=== PATIENT | male | born 1975 | race Caucasian/White ===

== ENCOUNTER 2018-07-23 19:05 | Emergency (ER) | payer MEDICAID, OTHER ==
[~2018-07-23] VITALS: Ht 177.8 cm; Wt 109.8 kg
--- OUTSIDE RECORDS SUMMARY | 2018-07-23 19:11 | XMS REPORT | Continuity of Care Document ---
Author Author [facility] Organization [facility] Address [address] [place] [address] Phone Unavailable Care Team Providers Care Account Service Representative Name Role Phone Roscoe Anne DO PCP Insurance Providers Payer Name Policy Number Subscriber Name Relationship [facility] [id number] Charlie Camp Self / Same As Patient Advance Directives Directive Response Recorded Date/Time Do You Have A Living Will? No 05/04/16 2:32am Do You Have a DPOA? No 05/04/16 2:32am Chief Complaint and Reason for Visit Chief Complaint Eye Problems Reason for Visit Abrasion of sclera of right eye Problems Active Problems Medical Problem Onset Date Status Anxiety Unknown Acute Reactive airway disease Unknown Acute Abrasion of sclera of right eye Unknown Acute Medications Current Home Medications Medication Dose Units Route Directions Days/Qty Instructions Start Date Esomeprazole Magnesium (Nexium) 40 Mg 40 Mg Oral Twice A Day Mag Hydrox/Al Hydrox/Simeth 355 Ml 355 Ml Oral As Needed take as directed 06/29/13 Fluticasone Propionate 110 Mcg/Actuation 1 Puff Inhalation Twice A Day 1 02/09/15 Social History Social History Problem Response Recorded Date/Time History of Street Drugs? Y marijuana 10 yrs ago 05/04/2016 2:25am Hx Alcohol Use N quit 4 yrs ago. 05/04/2016 2:25am Query Response Start Date Stop Date Smoking status: Former smoker Hospital Discharge Instructions No hospital discharge instructions. Plan of Care Discharge Date 05/04/16 3:00am Disposition HOME, ROUTINE DIS/ASST LIVING Condition at Discharge Stable & Improved Instructions/Education Provided Corneal Abrasion (ED) How to Use Eye Drops (GEN) Prescriptions See Medication Section Referrals Roscoe Anne DO - Additional Instructions/Education Activity Restrictions: Apply drops in right eye 4 times a day X 1 week. If symptoms get wrose then return to the ER or follow up with an eye doctor. Call the doctor's office for an appointment in 5 days, if you have any problems, concerns or need to make a follow-up appointment. IMPORTANT: We examined and treated you today on an emergency basis only. In most cases, you must let your doctor check you again. Tell your doctor about any new or lasting problems. We cannot recognize and treat all injuries or illnesses in one Emergency Department visit. If you had special tests, such as EKG's or X-rays, we will review them again within 24 hours. We will call you if there are any new suggestions. YOU ARE THE MOST IMPORTANT FACTOR IN YOUR RECOVERY. Follow these instructions carefully. Take your medicines as prescribed. Most important, see a doctor again as discussed. If you have problems that we have not discussed, call or visit your doctor right away. [facility] Emergency Department Functional Status No functional status results. Allergies, Adverse Reactions, Alerts No known allergies. Immunizations No immunization records. Vital Signs Acute Vital Signs Vital Response Date/Time Height (Feet) 5 ft 05/04/2016 2:25am Height (Inches) 10 inches 05/04/2016 2:25am Temperature (Fahrenheit) 98.2 degrees F (97.6 - 99.5) 05/04/2016 2:55am Pulse Pulse Rate 63 bpm (60 - 100) 05/04/2016 2:55am Respiratory Rate 20 bpm (10 - 24) 05/04/2016 2:55am Oxygen Saturation O2 Sat by Pulse Oximetry 96 % (93 - 100) 05/04/2016 2:55am Blood Pressure 160/81 mm Hg 05/04/2016 2:55am Blood Pressure Mean 107 mm Hg 05/04/2016 2:55am Height 5 ft 10 in Weight 248 lb Body Mass Index 35.0 kg/m^2 Results No known relevant diagnostic tests, laboratory data and/or discharge summary. Procedures Procedure Status Date Provider(s) EVALUATION OF WHEEZING Completed 04/26/16 PULM FUNCT TST PLETHYSMOGRAP Completed 04/26/16 CO/MEMBANE DIFFUSE CAPACITY Completed 04/26/16 Encounters Encounter Location Arrival/Admit Date Discharge/Depart Date Attending Provider Departed Emergency Room [facility] 05/04/16 2:25am 3:00am Zakia Barahona PA-C Departed Clinic [facility] 04/26/16 12:59pm 04/26/16 11: 59pm Roscoe Anne DO Recent Diagnosis
--- OUTSIDE RECORDS SUMMARY | 2018-07-23 19:11 | XMS REPORT | Continuity of Care Document ---
Author Author [facility] Organization [facility] Address Unknown Phone Unavailable Allergies Active Description Code Type Severity Reaction Onset Reported/Identified Relationship to Patient Clinical Status Yes No Known Allergies NKA Miscellaneous Allergy Unknown N/A 06/28/2013 Yes No Known Allergies Miscellaneous Allergy Unknown N/A 06/28/2013 Medications There is no data. 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, RIGHT EYE, INIT 05/04/2016 Zakia Barahona R PA-C Other X58.XXXA EXPOSURE TO OTHER SPECIFIED FACTORS, INITIAL ENCOUNTER 05/04/2016 Zakia Barahona PA-C Other Y99.0 CIVILIAN ACTIVITY DONE FOR INCOME OR PAY 07/19/2017 CIRILO BOYD P R74.8 ABNORMAL LEVELS OF OTHER SERUM ENZYMES Procedures Code Description [place] [address] Laminotomy (hemilaminectomy) , with decompression of nerve root(s), including partial facetectomy, fo Colby Medina 11/28/2011 Results Test Result Range CBC With Differential/Platelet - 06/22/17 11:45 WBC 7.6 x10E3/uL 3.4-10.8 RBC 5.43 x10E6/uL 4.14-5.80 Hemoglobin 16.2 g/dL 13.0-17.7 Hematocrit 47.7 % 37.5-51.0 MCV 88 fL 79-97 MCH 29.8 pg 26.6-33.0 MCHC 34.0 g/dL 31.5-35.7 RDW 14.5 % 12.3-15.4 Platelets 231 x10E3/uL 150-379 Neutrophils 69 % Not Estab. Lymphs 18 % Not Estab. Monocytes 11 % Not Estab. Eos 1 % Not Estab. Basos 0 % Not Estab. Neutrophils (Absolute) 5.3 x10E3/uL 1.4-7.0 Lymphs (Absolute) 1.3 x10E3/uL 0.7-3.1 Monocytes(Absolute) 0.8 x10E3/uL 0.1-0.9 Eos (Absolute) 0.1 x10E3/uL 0.0-0.4 Baso (Absolute) 0.0 x10E3/uL 0.0-0.2 Immature Granulocytes 1 % Not Estab. Immature Grans (Abs) 0.0 x10E3/uL 0.0-0.1 Comp. Metabolic Panel (14) - 06/22/17 11:45 Glucose, Serum 99 mg/dL 65-99 BUN 14 mg/dL 6-24 Creatinine, Serum 0.99 mg/dL 0.76-1.27 eGFR If NonAfricn Am 93 mL/min/1.73 >59 eGFR If Africn Am 107 mL/min/1.73 >59 BUN/Creatinine Ratio 14 9-20 Sodium, Serum 139 mmol/L 134-144 Potassium, Serum 4.0 mmol/L 3.5-5.2 Chloride, Serum 100 mmol/L 96-106 Carbon Dioxide, Total 24 mmol/L 18-29 Calcium, Serum 9.4 mg/dL 8.7-10.2 Protein, Total, Serum 7.1 g/dL 6.0-8.5 Albumin, Serum 4.4 g/dL 3.5-5.5 Globulin, Total 2.7 g/dL 1.5-4.5 A/G Ratio 1.6 1.2-2.2 Bilirubin, Total 0.5 mg/dL 0.0-1.2 Alkaline Phosphatase, S 84 IU/L 39-117 AST (SGOT) 38 IU/L 0-40 ALT (SGPT) 65 IU/L 0-44 Lipid Panel - 06/22/17 11:45 Cholesterol, Total 162 mg/dL 100-199 Triglycerides 133 mg/dL 0-149 HDL Cholesterol 48 mg/dL >39 VLDL Cholesterol Earl 27 mg/dL 5-40 LDL Cholesterol Calc 87 mg/dL 0-99 TSH - 06/22/17 11:45 TSH 1.750 uIU/mL 0.450-4.500 Chlamydia/GC Amplification - 07/10/18 14:54 Chlamydia trachomatis, ZAMZAM Negative Negative Neisseria gonorrhoeae, ZAMZAM Negative Negative Encounters ACCT No. Visit Date/Time Discharge Status Pt. Type Provider Facility Loc./Unit Complaint [id number] 03/29/2015 12:10:54 03/29/2015 23:59:59 CLS Outpatient Philip Darci Yonis [id number] 03/01/2015 11:14:38 03/01/2015 23:59:59 CLS Outpatient Fadia Guardado [id number] 02/22/2015 10:36:01 02/22/2015 23:59:59 CLS Outpatient PhilipDarci Yonis [id number] 12/21/2014 13:49:24 12/21/2014 23:59:59 CLS Outpatient Darci Palacios [id number] 02/20/2014 09:58:36 02/20/2014 23:59:59 CLS Outpatient Zoila Bernard [id number] 06/29/2013 01:56:00 06/29/2013 18:30:00 DIS Inpatient Donnie VAZQUEZ, [facility] [id number] 05/04/2016 02:25:00 05/04/2016 03:00:00 DIS Emergency Zakia Barahona PA-C [facility].ED EYE INJURY [id number] 04/26/2016 12:59:00 04/26/2016 23:59:00 DIS Outpatient [facility].PF COPD [id number] 07/29/2015 07:43:00 07/29/2015 23:59:59 CLS Outpatient [facility].LABONE [id number] 05/05/2015 19:37:00 06/22/2015 17:14:00 DIS Outpatient Danyell VAZQUEZ, Abram Azul [facility].SNS [id number] 04/30/2015 10:57:00 04/30/2015 23:59:00 DIS Outpatient Ron [facility].LAB [id number] 03/29/2015 23:04:00 03/29/2015 23:59:00 DIS Outpatient [facility].SLEEP [id number] 03/22/2015 10:22:00 03/22/2015 23:59:59 CLS Outpatient [facility].LABONE [id number] 03/22/2015 10:18:00 03/22/2015 23:59:00 DIS Outpatient [facility].IMG.RA [id number] 02/09/2015 08:21:00 02/09/2015 11:17:00 DIS Emergency Vesna Barbour [facility].ED [id number] 02/08/2015 12:52:00 02/08/2015 23:59:00 DIS Outpatient Cirilo Anne DO [facility].PF [id number] 02/04/2015 15:30:00 02/04/2015 23:59:59 CLS [facility].IMG.CT [id number] 02/01/2015 10:03:00 02/01/2015 23:59:59 CLS Outpatient Darci Palacios MD [facility].LABONE LAB ONE [id number] 02/01/2015 10:01:00 02/01/2015 23:59:00 DIS Outpatient Darci Palacios MD [facility].IMG.RA HX TOBACCO USE , PREOP [id number] 11/29/2015 17:57:26 Document Registration [id number] 03/24/2015 12:05:00 03/24/2015 23:59:59 CLS Outpatient [id number] 07/14/2018 08:36:00 Document Registration [id number] 07/11/2017 14:06:00 Document Registration [id number] 07/13/2017 07:45:00 ACT Unknown CIRILO BOYD [id number] 06/23/2017 08:13:00 Document Registration
--- OUTSIDE RECORDS SUMMARY | 2018-07-23 19:11 | XMS REPORT | Continuity of Care Document ---
Author Author [facility] Organization [facility] Address [address] [place] [address] Phone Unavailable Care Team Providers Care Director Of Marketing Operations Name Role Phone Roscoe Anne DO PCP Insurance Providers Payer Name Policy Number [id number] Charlie Camp Self / Same As Patient Advance Directives Directive Response Recorded Date/Time Do You Have A Living Will? No 04/26/16 12:58pm Do You Have a DPOA? No 04/26/16 12:58pm Problems Active Problems Medical Problem Onset Date Status Anxiety Unknown Acute Reactive airway disease Unknown Acute Medications Current Home Medications Medication [...] Street Drugs? Y marijuana 10 yrs ago 02/09/2015 8:25am Hx Alcohol Use N quit 4 yrs ago. 06/29/2013 1:57am Query Response Start Date Stop Date Smoking status: Former smoker Hospital Discharge Instructions No hospital discharge instructions. Plan of Care Discharge Date 04/26/16 11:59pm Prescriptions See Medication Section Functional Status No functional status results. Allergies, Adverse Reactions, Alerts No known allergies. Immunizations No immunization records. Vital Signs No known vital signs results. Results No known relevant diagnostic tests, laboratory data and/or discharge summary. Procedures No known history of procedures. Encounters Encounter Location Arrival/Admit Date Discharge/Depart Date Attending Provider Departed Clinic [facility] 04/26/16 12:59pm 04/26/16 11: 59pm Roscoe Anne DO
[2018-07-23] MEDS ORDERED: KETOROLAC 30 MG/ML VIAL IVP STA (19:28)
[2018-07-23] MEDS ORDERED: NS IV 1000 ML 1,000 ML IV STA (19:28)
[2018-07-23] MEDS ORDERED: AZITHROMYCIN INJECTION 500 MG in NS (IVPB) 250 ML IV STA (19:28)
[2018-07-23] MEDS ORDERED: cefTRIAXone FOR IV USE 1,000 MG in WATER (STERILE) FOR INJECTION 10 ML IV STA (19:28)
[2018-07-23] MEDS ORDERED: OSELTAMIVIR 75 MG (TAMIFLU) CAPSULE PO STA (19:31)
--- NOTE | 2018-07-23 19:36 | ED Cough/URI ---
General Stated Complaint: COUGH, WHEEZING, MIGRAINE, FEVER, SOB History of Present Illness Date Seen by Provider: Jul 23, 2018 Time Seen by Provider: 19:22 This is a 43-year-old man with a history of COPD who complains of 2 days of headache, right-sided earache, cough, fever, sore throat, and diffuse myalgias. No neck pain or neck stiffness. No visual change or focal weakness, numbness, or tingling. He says that the earache began first. The headache was not abrupt in onset, not worst of life. It is frontal and nonradiating. Cough is nonproductive. No leg swelling. No vomiting or diarrhea, no rash, no other symptoms. Allergies and Home Medications Allergies Coded Allergies: No Known Drug Allergies (Unverified , 07/23/18) Home Medications Azithromycin 250 Mg Tablet, 250 MG PO DAILY Prescribed by: ROSLYN WALLACE on 07/23/182221 Benzonatate 100 Mg Capsule, 200 MG PO BID PRN for COUGH Prescribed by: ROSLYN WALLACE on 07/23/182221 Methylprednisolone 4 Mg Tab.ds.pk, 4 MG PO UD PER DOSE PACK INSTRUCTIONS Prescribed by: ROSLYN WALLACE on 07/23/182221 Ondansetron 8 Mg Tab.rapdis, 8 MG PO TID PRN for NAUSEA/VOMITING-1ST LINE Prescribed by: ROSLYN WALLACE on 07/23/182221 Oseltamivir Phosphate 75 Mg Cap, 75 MG PO BID Prescribed by: ROSLYN WALLACE on 07/23/182221 Patient Home Medication List Home Medication List Reviewed: Yes Review of Systems Review of Systems Constitutional: see HPI EENTM: see HPI, ear pain, throat pain Respiratory: cough Cardiovascular: no symptoms reported Gastrointestinal: no symptoms reported Genitourinary: no symptoms reported Musculoskeletal: see HPI Skin: no symptoms reported Psychiatric/Neurological: See HPI Hematologic/Lymphatic: No Symptoms Reported Immunological/Allergic: no symptoms reported Past Hpsrrxl-Gkmgub-Fbqlid Hx Patient Social History Recent Foreign Travel: No Contact w/Someone Who Travel: No Physical Exam Vital Signs - First Documented 07/23/18 19:12 Temp 100.4 Pulse 126 Resp 24 B/P (MAP) 141/81 (101) Pulse Ox 96 O2 Delivery Room Air Capillary Refill : Height: '" Weight: lbs. oz. kg; BMI Method: General Appearance: no apparent distress HEENT: other (clear effusion behind right TM, left TM is normal, pharynx mildly erythematous, no edema, no exudates) Neck: supple Respiratory: other (mild Rales left posterior lung field, good air exchange bilaterally, no respiratory distress, intermittent dry sounding cough) Cardiovascular: normal peripheral pulses, no edema, other (tachycardic, regular ) Gastrointestinal: non tender, soft Extremities: non-tender Neurologic/Psychiatric: provider education specialist II-XII nml as tested, no motor/sensory deficits, alert, normal mood/affect, oriented x 3; No abnormal gait Skin: warm/dry Focused Exam Lactate Level 07/23/18 20:05: Lactic Acid Level 1.25 Lactic Acid Level Laboratory Tests Test 07/23/18 20:05 Lactic Acid Level 1.25 MMOL/L (0.50-2.00) Progress/Results/Core Measures Suspected Sepsis SIRS Temperature: Pulse: Respiratory Rate: Laboratory Tests 07/23/18 19:40: White Blood Count 9.4 Blood Pressure / Mean: 07/23/18 20:05: Lactic Acid Level 1.25 Laboratory Tests 07/23/18 19:40: Platelet Count 167 07/23/18 20:05: Creatinine 0.90 Results/Orders Lab Results Laboratory Tests Test 07/23/18 19:40 07/23/18 20:05 Range/Units White Blood Count 9.4 4.3-11.0 10^3/uL Red Blood Count 5.81 4.35-5.85 10^6/uL Hemoglobin 17.4 13.3-17.7 G/DL Hematocrit 50 40-54 % Mean Corpuscular Volume 86 80-99 FL Mean Corpuscular Hemoglobin 30 25-34 PG Mean Corpuscular Hemoglobin Concent 35 32-36 G/DL Red Cell Distribution Width 13.7 10.0-14.5 % Platelet Count 167 130-400 10^3/uL Mean Platelet Volume 10.2 7.4-10.4 FL Neutrophils % (Manual) 72 % Lymphocytes % (Manual) 4 % Monocytes % (Manual) 10 % Eosinophils % (Manual) 2 % Basophils % (Manual) 1 % Band Neutrophils 8 % Atypical Lymphocytes 3 % Sodium Level 140 135-145 MMOL/L Potassium Level 4.2 3.6-5.0 MMOL/L Chloride Level 104 98-107 MMOL/L Carbon Dioxide Level 24 21-32 MMOL/L Anion Gap 12 5-14 MMOL/L Blood Urea Nitrogen 11 7-18 MG/DL Creatinine 0.90 0.60-1.30 MG/DL Estimat Glomerular Filtration Rate > 60 BUN/Creatinine Ratio 12 Glucose Level 108 H 70-105 MG/DL Lactic Acid Level 1.25 0.50-2.00 MMOL/L Calcium Level 9.3 8.5-10.1 MG/DL My Orders Orders - ROSLYN WALLACE T DO Chest Pa/Lat (2 View) (07/23/18 19:27) Cbc With Automated Diff (07/23/18:27) Basic Metabolic Panel (07/23/18 19:) Ekg Tracing (07/23/18:) Blood Culture (07/23/18:) Lactic Acid Analyzer (07/23/18:) Ketorolac Injection (Toradol Injection) (07/23/18 19:28) Ns Iv 1000 Ml (Sodium Chloride 0.9%) (07/23/18 19:28) Ceftriaxone For Iv Use (Rocephin For I (07/23/18 19:28) Azithromycin Injection (Zithromax Inject (07/23/18 19:28) Oseltamivir 75 Mg Capsule (Tamiflu 75 (07/23/18 19:31) Benzonatate Capsule (Tessalon Perles) (07/23/18 19:54) Manual Differential (07/23/18 19:40) Albuterol/Ipra Inhalation Soln (Duoneb I (07/23/18 20:09) Svn Small Volume Nebulizer (07/23/18 20:09) Prednisone Tablet (Deltasone Tablet) (07/23/18 20:09) Ondansetron Injection (Zofran Injectio (07/23/18 21:35) Ondansetron Injection (Zofran Injectio (07/23/18 21:36) Vital Signs/I&O 07/23/18 19:12 Temp 100.4 Pulse 126 Resp 24 B/P (MAP) 141/81 (101) Pulse Ox 96 O2 Delivery Room Air Capillary Refill : Progress Note : Progress Note This is a 43-year-old male with a history of COPD complaining of cough, headache , sore throat, earache, fever, myalgias. We will treat empirically for influenza. We will fluid resuscitate, treat with Toradol, check a lactate is a screen for severe sepsis. We will check a chest x-ray. We will treat with empiric antibiotics per sepsis protocol and given a history of underlying COPD. Diagnostic Imaging Diagonstic Imaging: Xray Comments Date of Exam:07/23/18 CHEST PA/LAT (2 VIEW) INDICATION: Flu like symptoms. FINDINGS: The lungs are clear, although hyperexpanded. There is some flattening of the diaphragms compatible with mild symmetrical air trapping. No pneumonia, failure, effusion or pneumothorax. No free air beneath the diaphragms. IMPRESSION: Clear mildly hyperexpanded lungs otherwise negative. Departure Impression Primary Impression: Influenza-like symptoms Additional Impression: Complicated bronchitis Disposition: 01 HOME, SELF-CARE Condition: Stable Departure-Patient Inst. Referrals: NO,LOCAL PHYSICIAN (PCP) Primary Care Physician Patient Instructions: Flu Scripts Methylprednisolone (Medrol) 4 Mg Tab.ds.pk 4 MG PO UD for 6 Days, #21 PKG PER DOSE PACK INSTRUCTIONS Prov: ROSLYN WALLACE DO 07/23/18 Benzonatate (TESSALON PERLES) 100 Mg Capsule 200 MG PO BID PRN for COUGH for 7 Days, #14 CAP Prov: ROSLYN WALLACE DO 07/23/18 Azithromycin (Azithromycin) 250 Mg Tablet 250 MG PO DAILY, #4 TAB 0 Refills Prov: ROSLYN WALLACE DO 07/23/18 Ondansetron (Ondansetron Odt) 8 Mg Tab.rapdis 8 MG PO TID PRN for NAUSEA/VOMITING-1ST LINE for 7 Days, #20 TAB Prov: ROSLYN WALLACE DO 07/23/18 Oseltamivir Phosphate (Tamiflu) 75 Mg Cap 75 MG PO BID for 5 Days, #10 CAP Prov: ROSLYN WALLACE DO 07/23/18 Work/School Note: Work Release Form Date Seen in the Emergency Department: Jul 23, 2018 Return to Work: Jul 25, 2018 Restrictions: Return-No Fever (24hrs) ROSLYN WALLACE DO Jul 23, 2018 19:36
[2018-07-23] MEDS ORDERED: BENZONATATE 100 MG (TESSALON) CAPSULE PO STA (19:54)
--- NOTE | 2018-07-23 19:55 | Diagnostic Imaging Report ---
INDICATION: Flu like symptoms. FINDINGS: The lungs are clear, although hyperexpanded. There is some flattening of the diaphragms compatible with mild symmetrical air trapping. No pneumonia, failure, effusion or pneumothorax. No free air beneath the diaphragms. IMPRESSION: Clear mildly hyperexpanded lungs otherwise negative. Dictated by: Dictated on workstation # [id number]
[2018-07-23 19:57] LABS: HEMOGLOBIN 17.4 G/DL (13.3-17.7); MEAN CORPUSCULAR HEMOGLOBIN 30 PG (25-34); WHITE BLOOD COUNT 9.4 10^3/uL (4.3-11.0)
[2018-07-23 19:58] LABS: HEMATOCRIT 50 % (40-54); MEAN CORPUSCULAR HGB CONC 35 G/DL (32-36); MEAN CORPUSCULAR VOLUME 86 FL (80-99); MEAN PLATELET VOLUME 10.2 FL (7.4-10.4); PLATELET COUNT 167 10^3/uL (130-400); RED CELL DISTRIBUTION WIDTH 13.7 % (10.0-14.5)
[2018-07-23] MEDS ORDERED: RT-ALBUTEROL/IPRATROPIUM 3 ML (DUONEB) VIAL INH STA (20:09)
[2018-07-23] MEDS ORDERED: predniSONE 20 MG TAB PO STA (20:09)
[2018-07-23 20:28] LABS: ATYPICAL LYMPHOCYTES 3 %; BAND NEUTROPHILS 8 %; BASOPHILS % (MANUAL) 1 %; EOSINOPHILS % (MANUAL) 2 %; LYMPHOCYTES % (MANUAL) 4 %; MONOCYTES % (MANUAL) 10 %; NEUTROPHILS % (MANUAL) 72 %
[2018-07-23 20:51] LABS: BUN/CREATININE RATIO 12; CALCIUM 9.3 MG/DL (8.5-10.1); CARBON DIOXIDE 24 MMOL/L (21-32); CHLORIDE 104 MMOL/L (98-107); GFR ESTIMATED > 60; GLUCOSE 108 MG/DL (70-105); POTASSIUM 4.2 MMOL/L (3.6-5.0); SODIUM 140 MMOL/L (135-145)
[2018-07-23] MEDS ORDERED: ONDANSETRON 4 MG/2 ML (SDV) Z0FRAN IVP STA (21:35)
[2018-07-23] MEDS ORDERED: ONDANSETRON 4 MG/2 ML (SDV) Z0FRAN ONE (21:36)
[2018-07-23] MEDS ORDERED: ONDA8TAB13 PO (22:22)
[2018-07-23] MEDS ORDERED: METH4TAB PO (22:22)
[2018-07-23] MEDS ORDERED: AZIT250T12 PO (22:22)
[2018-07-23] MEDS ORDERED: OSLT75C PO (22:22)
[2018-07-23] MEDS ORDERED: BENZ100C18 PO (22:22)
[2018-07-23 22:32] VITALS: BP 110/74
[2018-07-24 07:19] LABS: BASOPHILS % (AUTO) 0 % (0-10); EOSINOPHILS # (AUTO) 0.1 10^3/uL (0.0-0.3); EOSINOPHILS % (AUTO) 1 % (0-10); LYMPHOCYTES # (AUTO) 0.4 X 10^3 (1.0-4.0); LYMPHOCYTES % (AUTO) 4 % (12-44); MONOCYTES # (AUTO) 1.1 X 10^3 (0.0-1.0); MONOCYTES % (AUTO) 12 % (0-12); NEUTROPHILS # (AUTO) 7.7 X 10^3 (1.8-7.8); NEUTROPHILS % (AUTO) 83 % (42-75)
== END 2018-07-23 22:32 | disposition home or self-care (01) ==
LOC: ER FS 19:08
DX: J02.9 Acute pharyngitis, unspecified (principal); R06.02 Shortness of breath; M17.10 Unilateral primary osteoarthritis, unspecified knee; G43.909 Migraine, unspecified, not intractable, without status migrainosus; J44.9 Chronic obstructive pulmonary disease, unspecified; Z79.52 Long term (current) use of systemic steroids
CPT/HCPCS: 36415; 71046; 80048; 83605; 85007; 85027; 87040; 93005